=== PATIENT | female | born 1955 | race Caucasian/White ===

== ENCOUNTER 2017-01-02 11:06 | Emergency (ER) | payer BC ==
[2017-01-02 11:10] VITALS: TEMP 97.8; BMI 30.7
--- NOTE | 2017-01-02 11:18 | PDOC ---
History of Present Illness - History of Present Illness Initial Comments: 01/02/17 11:26 The patient is a 61 year old female, with a significant past medical history of GERD (on ranitidine), hydronephrosis and kidney stones s/p lithotripsy and stent placement, and [place] Palsy (with residual left facial weakness), who presents to the emergency department with dizziness and nausea since yesterday. The patient states that the room spins when she moves her head or gets up from sitting down. She denies experiencing this in the past, but reports she usually experiences intermittent ringing in her ears. She denies tinnitus at this time. She denies falling secondary to her dizziness. She reports seeing an ENT for sinus problems and reports having sinus polyps removed She denies chest pain, shortness of breath, headache. She denies fever, chills, vomit, diarrhea and constipation. She denies dysuria, frequency, urgency and hematuria. Allergies: NKDA Past surgical history: cholecystectomy, removal of sinus polyp, b/l TKR Social history: Pt denies toxic habits PCP - Dr. Matt Parmar <Yue Méndez - Last Filed: 01/02/17 11:26> - General History Source: Patient Exam Limitations: No Limitations <Tita Mason - Last Filed: 01/02/17 13:58> - General Chief Complaint: Lightheaded Stated Complaint: DIZZINESS Time Seen by Provider: 01/02/17 11:13 Past History <Yue Méndez - Last Filed: 01/02/17 11:26> - Past Medical History Anemia: No Asthma: No GI Disorders: Yes (ACID REFLUX) Disorders: Yes (KIDNEY STONES) - Surgical History Abdominal Surgery: Yes Cholecystectomy: Yes Orthopedic Surgery: Yes - Psycho/Social/Smoking Cessation Hx Anxiety: No Suicidal Ideation: No Smoking Status: No Smoking History: Never smoked Have you smoked in the past 12 months: No Number of Cigarettes Smoked Daily: 0 Hx Alcohol Use: No Drug/Substance Use Hx: No Substance Use Type: None Hx Substance Use Treatment: No <Tita Mason - Last Filed: 01/02/17 13:58> - Past Medical History Allergies/Adverse Reactions: Allergies Allergy/AdvReac Type Severity Reaction Status Date / Time No Known Drug Allergies Allergy Verified 01/02/17 11:07 Home Medications: Ambulatory Orders Meclizine HCl [Antivert -] 25 mg PO TID #21 tablet 01/02/17 Ranitidine [Zantac -] 150 mg PO BID 01/02/17 Review of Systems - Review of Systems Able to Perform ROS?: Yes Comments:: 01/02/17 11:26 CONSTITUTIONAL: Absent: fever, no chills, no fatigue EYES: Absent: visual changes ENT: Absent: ear pain, no sore throat CARDIOVASCULAR: Absent: chest pain, no palpitations RESPIRATORY: Absent: cough, no SOB GASTROINTESTINAL: (+) nausea, Absent: abdominal pain, no vomiting, no constipation, no diarrhea GENITOURINARY: Absent: dysuria, no frequency, no hematuria MUSCULOSKELETAL: Absent: back pain, no arthralgia, no myalgia SKIN: Absent: rash NEURO: (+) vertigo. Absent: headache <Yue Méndez - Last Filed: 01/02/17 11:26> *Physical Exam - Vital Signs Last Vital Signs Temp Pulse Resp BP Pulse Ox 97.8 F 65 18 161/78 99 01/02/17 11:06 01/02/17 11:06 01/02/17 11:06 01/02/17 11:06 01/02/17 11:06 - Physical Exam Comments: 01/02/17 11:27 GENERAL: The patient is in no acute distress. HEAD: Normal with no signs of trauma. EYES: (+) nystagmus on the right. PERRLA, EOMI, sclera anicteric, conjunctiva clear. ENT: Ears normal, nares patent, oropharynx clear without exudates. Moist mucous membranes. NECK: Normal range of motion, supple without lymphadenopathy, JVD, or masses. LUNGS: Breath sounds equal, clear to auscultation bilaterally. No wheezes, and no crackles. HEART:Regular rate and rhythm, normal S1 and S2 without murmur, rub or gallop. ABDOMEN: Soft, nontender, normoactive bowel sounds. No guarding, no rebound. No masses palpable. EXTREMITIES: Normal range of motion, no edema. No clubbing or cyanosis. No erythema, or tenderness. NEUROLOGICAL: Cranial nerves II through XII grossly intact. Normal speech. No focal neurological deficits. MUSCULOSKELETAL: Back non-tender to palpation, no CVA tenderness SKIN: Warm, Dry, normal turgor, no rashes or lesions noted. <Yue Méndez - Last Filed: 01/02/17 11:26> - Vital Signs Last Vital Signs Temp Pulse Resp BP Pulse Ox 97.8 F 65 18 161/78 99 01/02/17 11:06 01/02/17 11:06 01/02/17 11:06 01/02/17 11:06 01/02/17 11:06 <Tita Mason - Last Filed: 01/02/17 13:58> Heart Score/ECG Review #1 ECG reviewed & interpreted by me at: 11:58 01/02/17 11:58 Sinus bradycardia rate of 53 bpm [place] nml Intervals nml T waves nml <Tita Mason - Last Filed: 01/02/17 13:58> ED Treatment Course - LABORATORY CBC & Chemistry Diagram: 01/02/17 11:45 01/02/17 11:45 <Tita Mason - Last Filed: 01/02/17 13:58> Medical Decision Making - Medical Decision Making 01/02/17 11:17 A portion of this note was documented by scribe services under my direction. I have reviewed the details of the note, within reason, and agree with the documentation with the following case summary and management plan written by me. Nursing documentation reviewed and incorporated into medical decision making 01/02/17 11:39 This is a 61-year-old female with a history of GERD, kidney stones, prior left- sided Padilla's palsy who presents emergency department with vertigo. Patient states her symptoms began yesterday but improved. This morning again she awoke with vertiginous symptoms. Her symptoms worsen when she stands or clicks to the right. No head trauma. No fevers, no chills. No headache. No tinnitus. On exam: Pt has left facial weakness (Per is a stable) patient has 5/5 strength in all extremities (+) horizontal nystagmus to the right Symptoms elicited when looking to the right Will do basic labs Will give Meclizine Will re assess Will contact PMD 01/02/17 11:58 Laboratory Tests 01/02/17 11:45 WBC 9.3 Hgb 15.6 H D Hct 47.1 H D Plt Count 277 Neutrophils % 71.3 Lymphocytes % 19.9 01/02/17 12:39 Laboratory Tests 01/02/17 11:45 Sodium 140 Potassium 4.5 Chloride 106 Carbon Dioxide 25 BUN 24 H Creatinine 0.9 D Random Glucose 130 H D Creatine Kinase 164 CK-MB (CK-2) 2.910 Troponin I < 0.02 01/02/17 13:53 Upon reassessment Pt state she feels better She has been ambulatory with no ataxia No tinnitus 01/02/17 13:[address] Parmar He recommends that she follow up with Dr. Ames Will discharge with Meclizine and ENT follow up Clinical Impression: Vertigo <Tita Mason - Last Filed: 01/02/17 13:58> *DC/Admit/Observation/Transfer - Attestations Scribe Attestion: 01/02/17 11:27 Documentation prepared by Yue Méndez, acting as medical instructor for Tita Mason MD <Yue Méndez - Last Filed: 01/02/17 11:26> - Discharge Dispostion Admit: No <Tita Mason - Last Filed: 01/02/17 13:58> Diagnosis at time of Disposition: Vertigo - Discharge Dispostion Disposition: HOME Condition at time of disposition: Stable - Prescriptions Prescriptions: Meclizine HCl [Antivert -] 25 mg PO TID #21 tablet - Referrals Referrals: Matt Parmar MD [Primary Care Provider] - Khris Ames MD [Staff Physician] - - Patient Instructions Printed Discharge Instructions: DI for Vertigo, Benign Paroxysmal Positional Vertigo, Vertigo (Alternative Therapy), DI for Benign Paroxysmal Positional Vertigo Additional Instructions: Ms. Germain Thank you for coming in to the ER today Please take prescribed medication to help with your vertigo Please return to the ER for persistent or worsening symptoms I have discussed your ER visit with Dr Parmar He recommends that you follow up with Dr. Ames within in the next 2-3 business days
[2017-01-02] MEDS ORDERED: MECLIZINE HCL 25 MG TABLET (FP) PO ONE (11:26)
[2017-01-02] MEDS ORDERED: MECLIZINE HCL 25 MG TABLET (FP) ONE (11:44)
[2017-01-02 11:51] LABS: BASOPHIL 1.1 % (0-2.0); EOSINOPHIL 1.4 % (0-4.5); MCH 28.6 pg (25.7-33.7); MCHC 33.2 g/dl (32.0-36.0); MEAN CELL VOLUME 86.1 fl (80-96); MEAN PLT VOLUME 7.9 fl (7.5-11.1); NEUTROPHILS 71.3 % (42.8-82.8); PLATELET COUNT 277 K/MM3 (134-434); RDW 14.8 % (11.6-15.6); WHITE BLOOD COUNT 9.3 K/mm3 (4.0-10.0)
[2017-01-02 12:18] LABS: ALBUMIN 3.6 g/dl (3.4-5.0); ANION GAP 9 (8-16); BILIRUBIN,TOTAL 0.3 mg/dL (0.2-1.0); CALCIUM 9.3 mg/dL (8.5-10.1); CO2 25 mmol/L (21-32); CREATININE 0.9 mg/dL (0.55-1.02); GLUCOSE,RANDOM 130 mg/dL (74-106); SGOT/AST 20 U/L (15-37); SGPT/ALT 24 U/L (12-78); TOT PROT 7.2 g/dl (6.4-8.2)
[2017-01-02 12:20] LABS: ALK PHOS 61 U/L (45-117); TROPONIN I < 0.02 ng/ml (0.00-0.05)
--- NOTE | 2017-01-02 13:05 | EKG ---
Test Reason : Blood Pressure : / mmHG Vent. Rate : 053 BPM Atrial Rate : 053 BPM P-R Int : 158 ms QRS Dur : 094 ms QT Int : 428 ms P-R-T Axes : 051 004 021 degrees QTc Int : 401 ms SINUS BRADYCARDIA OTHERWISE NORMAL ECG WHEN COMPARED WITH ECG OF 20-JUL-2015 10:02, NO SIGNIFICANT CHANGE WAS FOUND Confirmed by MARY BETH GARCIA MD ([id number]) on 01/02/2017 1:05:28 PM Referred By: Confirmed By:MARY BETH GARCIA MD
[2017-01-02 14:15] VITALS: BP 130/80; PULSE 68
== END 2017-01-02 14:15 | disposition home or self-care (01) ==
LOC: JER 11:06 → SUPCPDRO 11:06 → JER 14:15
DX: R42 Dizziness and giddiness (principal); K21.9 Gastro-esophageal reflux disease without esophagitis; G51.0 Bell's palsy; R29.810 Facial weakness; Z87.442 Personal history of urinary calculi
CPT/HCPCS: 36415; 80053; 82550; 82553; 84484; 85025; 93005; 93010; 99283-25

== ENCOUNTER 2019-04-05 07:01 | Day surgery (SDC) | payer BC ==
[2019-04-02 09:44] VITALS: BMI 31.7
[2019-04-05 08:25] VITALS: TEMP 98
[2019-04-05 09:16] VITALS: BP 147/80; PULSE 65
--- NOTE | 2019-04-05 12:47 | EKG ---
Test Reason : Blood Pressure : / mmHG Vent. Rate : 064 BPM Atrial Rate : 064 BPM P-R Int : 156 ms QRS Dur : 096 ms QT Int : 414 ms P-R-T Axes : -03 036 023 degrees QTc Int : 427 ms NORMAL SINUS RHYTHM NORMAL ECG WHEN COMPARED WITH ECG OF 02-JAN-2017 11:55, NO SIGNIFICANT CHANGE WAS FOUND Confirmed by ZARA PAYAN MD ([id number]) on 04/05/2019 12:47:51 PM Referred By: Janna Liao Confirmed By:ZARA PAYAN MD
--- NOTE | 2019-04-06 18:12 | PATH ---
Surgical Pathology Report Patient Name: KIEL MICHAEL [facility]. Rec. #: [id number] /Age/Gender: 1955 (Age: 63) / F Account: [id number] Location: U-ENDOSCOPY Taken: 04/05/2019 Received: 04/05/2019 Reported: 04/06/2019 Physicians: Janna Liao M.D. Specimen(s) Received A: ANTRUM B: GE JUNCTION/SCHATZKI RING BIOPSY C: MID ESOPHAGUS Clinical History Dysphagia, epigastric pain Postoperative diagnosis: Erosive gastritis, GERD Final Diagnosis A. ANTRUM, BIOPSY: GASTRIC MUCOSA WITH CHRONIC GASTRITIS. IMMUNOSTAIN FOR H. PYLORI IS NEGATIVE. NEGATIVE FOR INTESTINAL METAPLASIA. B. GE JUNCTION/SCHATZKI'S RING, BIOPSY: GASTROESOPHAGEAL JUNCTIONAL MUCOSA WITH REFLUX ESOPHAGITIS. NEGATIVE FOR INTESTINAL METAPLASIA. C. MID ESOPHAGUS, BIOPSY: ESOPHAGEAL MUCOSAL WITH NO SIGNIFICANT PATHOLOGIC CHANGE. NO HISTOLOGIC EVIDENCE OF EOSINOPHILIC ESOPHAGITIS. Electronically Signed Almaz Petersen M.D. Gross Description A. Received in formalin, labeled "antrum" are 4 fuentes, irregular soft tissue measuring 0.1 to 0.4 cm. in greatest dimension. The specimen is submitted in toto in one cassette. B. Received in formalin, labeled "GE junction/Schatzki's ring" are 4 fuentes soft tissue measuring 0.2 to 0.3 cm. in greatest dimension. The specimen is submitted in toto in one cassette. C. Received in formalin, labeled "mid esophagus" is a fuentes, irregular soft tissue measuring 0.1 cm. in greatest dimension. The specimen is submitted in toto in one cassette. __ KWS/04/05/2019 deirdre/04/05/2019
--- NOTE | 2019-04-17 10:07 | PDOC ---
Patient Follow-up (Call Back) - Post ED Follow - Up Condition at time of discharge: Stable Disposition at time of original discharge: TRANSFER ACUTE CARE/OTHER HOSP - Disposition Additional Instructions/Notes: Patient called back re: positive urine culture Patient mentions having occasional dysuria Given symptomatic, rx sent for Bactrim based on culture sensitivities
== END 2019-04-05 09:17 | disposition short-term general hospital (02) ==
LOC: JASU-ENDO 07:01
PROVIDERS: ATTEND Internal Medicine Gastroenterology
PROC: 0DB28ZX Excision of Middle Esophagus, Via Natural or Artificial Opening Endoscopic, Diagnostic (ICD-10-PCS; 2019-04-05)
PROC: 0DB38ZX Excision of Lower Esophagus, Via Natural or Artificial Opening Endoscopic, Diagnostic (ICD-10-PCS; 2019-04-05)
PROC: 0DB48ZX Excision of Esophagogastric Junction, Via Natural or Artificial Opening Endoscopic, Diagnostic (ICD-10-PCS; 2019-04-05)
PROC: 0DB68ZX Excision of Stomach, Via Natural or Artificial Opening Endoscopic, Diagnostic (ICD-10-PCS; principal; 2019-04-05 08:00)
DX: K29.50 Unspecified chronic gastritis without bleeding (principal); K21.0 Gastro-esophageal reflux disease with esophagitis; K44.9 Diaphragmatic hernia without obstruction or gangrene; K21.9 Gastro-esophageal reflux disease without esophagitis; R10.13 Epigastric pain; R13.10 Dysphagia, unspecified; R07.9 Chest pain, unspecified
CPT/HCPCS: 36415; 74019-TC-FY; 80053; 81003; 82550; 84484; 85025; 85610; 85730; 86850; 86900; 86901; 87086; 87186; 88305-TC; 88342-TC; 93005; 93010; 99285-25; J0131; J7030

== ENCOUNTER 2019-04-05 09:13 | Emergency (ER) | payer BC ==
[2019-04-05 09:32] VITALS: BMI 30.4
[2019-04-05] MEDS ORDERED: ACETAMINOPHEN 1000 MG/100 ML VIAL (NON FORMULARY) IVPB ONE (09:48)
[2019-04-05] MEDS ORDERED: FAMOTIDINE 20 MG/50 ML IVPB 20 MG/50 ML MG IVPB ONE ×2 (09:48→10:02)
[2019-04-05] MEDS ORDERED: SODIUM CHLORIDE 1,000 ML IV STA (09:48)
[2019-04-05] MEDS ORDERED: ACETAMINOPHEN INJECTION 100 ML IVPB ONE (10:02)
--- NOTE | 2019-04-05 10:04 | PDOC ---
History of Present Illness - General Chief Complaint: Chest Pain Stated Complaint: Chest Pain Time Seen by Provider: 04/05/19 09:24 History Source: Patient Exam Limitations: No Limitations Past History - Past Medical History Allergies/Adverse Reactions: Allergies Allergy/AdvReac Type Severity Reaction Status Date / Time No Known Drug Allergies Allergy Verified 01/02/17 11:07 Home Medications: Ambulatory Orders Pantoprazole Sodium [Protonix] 40 mg PO DAILY 04/02/19 Fluticasone Prop 0.05% Nasal [Flonase -] 1 spray NS PRN PRN 04/05/19 Mag Carb/Aluminum Hydrox/Algin [Gaviscon Liquid] 15 - 30 ml PO Q6H PRN 04/05/19 Anemia: No Asthma: No COPD: No GI Disorders: Yes (ACID REFLUX GERD SCHATZKI RING HH DIVERTICULOSIS, R COLON ADENOMA) Disorders: Yes (KIDNEY STONES, S/P ESWL) - Surgical History Abdominal Surgery: Yes Cholecystectomy: Yes (LAP) Neurologic Surgery: Yes (CERVICAL SPINE SURGERY) Orthopedic Surgery: Yes (DEBRA TOTAL KNEE REPLACEMENTS) - Immunization History Immunization Up to Date: No - Psycho Social/Smoking Cessation Hx Smoking Status: No Smoking History: Never smoked Have you smoked in the past 12 months: No Number of Cigarettes Smoked Daily: 0 Hx Alcohol Use: No Drug/Substance Use Hx: No Substance Use Type: None Hx Substance Use Treatment: No Review of Systems - Review of Systems Able to Perform ROS?: Yes Is the patient limited Niuean proficient: No *Physical Exam - Vital Signs Last Vital Signs Temp Pulse Resp BP Pulse Ox 99.0 F 62 16 166/81 99 04/05/19 09:27 04/05/19 09:27 04/05/19 09:27 04/05/19 09:27 04/05/19 09:27 ED Treatment Course - LABORATORY CBC & Chemistry Diagram: 04/05/19 10:05 04/05/19 10:05 Medical Decision Making - Medical Decision Making 04/05/19 09:58 HPI: 63F PMH GERD c/o chest pain and heaviness s/p endoscopy this AM. Sx started after pt woke up from general anesthesia. Described as constant nonradiating substernal chest pain and heaviness "as if elephant were sitting on her." Pt states sx unlike her GERD pain. Pain has decreased to 4/10 since onset. Denies sob, abdominal pain. PMH: GERD, arthritis Endoscopy by Dr. Keshawn MIDDLETON ROS: CONSTITUTIONAL: Denies F / C / Diaphoresis HEENT: Endorses mild lightheadedness RESP: Denies SOB CARD: Endorses chest pain, chest heaviness. Denies palpitation. GI: Denies N / V / D, abdominal pain : Endorses 1 week dysuria PE: GEN: NAD, comfortable. AAOx3 HEENT: NC/AT. Moist mucous membranes. Normal voice. Supple neck w/ FROM. CV: S1/S2, RRR, no m/r/g LUNG: CTAB, no wheezes, crackles, rales, rhonchi. Normal respiratory effort on RA. GI: Endorsing mild epigastric soreness on palpation but otherwise soft, ndnt, + BS, no guarding, no rebound. No masses. EXTREMITIES: No obvious deformities of all extremities. SKIN: warm, dry, normal turgor PSYCH: normal mood and affect NEURO: Moving all extremities well. MDM: 63F c/o chest pain/heaviness s/p endoscopy. DDX- ACS, Esophageal perforation, Esophageal irritation Chest Pain/Heaviness - CBC, CMP, T&S, Coag, Card - XR ABD Flat and upright - EKG - fluids, pain ctrl, famotidine Dysuria x1 week on ROS - UA, UC EKG 04/05/19 09:48 HR 65 [place] 156 QRS 88 QTc 428 NSR 04/05/19 12:37 UA neg. XR report reviewed Trop neg. x1 - Obtain repeat EKG and trop Patient is not interested in staying overnight ED team spoke w/ Dr. Parmar regarding case and patient wishes - cardiology c /s 04/05/19 15:09 2nd trop neg. EKG 04/05/19 12:25 HR 59 [place] 168 QRS 94 QTc 411 Patient reassessed and feeling better; symptoms are improving Discussed w/ Cardiology - Dr. Cotter who will see the patient today 04/05/19 16:34 Discussed patient w/ Cardiology - Dr. Cotter; will evaluate patient outpatient - echo, stress Discharge patient home w/ close cardiology and pcp f/u Discharge - Discharge Information Problems reviewed: Yes Clinical Impression/Diagnosis: Chest heaviness Condition: Improved Disposition: HOME - Admission No - Follow up/Referral Referrals: Matt Parmar MD [Primary Care Provider] - Cathryn Cotter MD [Staff Physician] - - Patient Discharge Instructions Patient Printed Discharge Instructions: DI for Atypical Chest Pain Additional Instructions: You were seen and treated in the Emergency Department. Follow up with your Primary Care Doctor regarding this ED visit in the next 2-4 days. Follow up with Cardiology Dr. Cotter for further evaluation of your symptoms within the next 1 day. Return to the Emergency Department IMMEDIATELY if you experience any of the following: - chest pain - shortness of breath or difficulty breathing - severe vomiting or inability to eat or drink - ANYTHING that concerns you - Post Discharge Activity
[2019-04-05 10:35] LABS: BASO % 1.5 % (0-2.0); EOS % 2.8 % (0-4.5); HEMATOCRIT 44.6 % (32.4-45.2); HEMOGLOBIN 14.5 GM/dL (10.7-15.3); LYMPH % 28.9 % (8-40); MCH 28.3 pg (25.7-33.7); MCHC 32.5 g/dl (32.0-36.0); MEAN PLT VOLUME 8.2 fl (7.5-11.1); MONO % 7.2 % (3.8-10.2); NEUT % 59.6 % (42.8-82.8); PLATELET COUNT 326 K/MM3 (134-434); RBC 5.12 M/mm3 (3.60-5.2); RDW 14.9 % (11.6-15.6); WHITE BLOOD COUNT 9.9 K/mm3 (4.0-10.0)
[2019-04-05 10:45] LABS: INR 0.96 (0.83-1.09); PROTHROMBIN TIME (PATIENT) 11.3 SEC (9.7-13.0)
[2019-04-05 10:46] LABS: EPI CELLS 0.3 /HPF (0-5/HPF); HYALINE CASTS 0 /lpf (0-8); PH,URINE 6.5 (5.0-8.0); URINE APPEARANCE CLEAR; URINE BACTERIA 2.4 /hpf (NEGATIVE); URINE BILIRUBIN NEGATIVE (NEGATIVE); URINE COLOR YELLOW; URINE GLUCOSE (UA) NEGATIVE (NEGATIVE); URINE KETONE NEGATIVE (NEGATIVE); URINE LEUK ESTERASE TRACE (NEGATIVE); URINE NITRITE NEGATIVE (NEGATIVE); URINE PROTEIN NEGATIVE (NEGATIVE); URINE RBC 0 /hpf (0-4); URINE UROBILINOGEN 0.2 mg/dL (0.2-1.0); URINE WBC 6 /hpf (0-5)
[2019-04-05 10:47] LABS: ACTIVATED PTT 34.3 SECONDS (25.2-36.5)
[2019-04-05 11:00] LABS: ALBUMIN 3.6 g/dl (3.4-5.0); ALK PHOS 59 U/L (45-117); ANION GAP 5 MMOL/L (8-16); BILIRUBIN,TOTAL 0.4 mg/dL (0.2-1); BLOOD UREA NITROGEN 23.4 mg/dL (7-18); CHLORIDE 109 mmol/L (98-107); CO2 30 mmol/L (21-32); CREATININE 1.1 mg/dL (0.55-1.3); GLUCOSE,RANDOM 108 mg/dL (74-106); POTASSIUM 4.2 mmol/L (3.5-5.1); SGOT/AST 16 U/L (15-37); SGPT/ALT 23 U/L (13-61); SODIUM 143 mmol/L (136-145); TOT PROT 7.1 g/dl (6.4-8.2)
[2019-04-05] MEDS ORDERED: ASPIRIN 81 MG CHEWABLE TABLETS PO ONE (12:09)
--- NOTE | 2019-04-05 12:15 | PDOC ---
Documentation entered by Chelle Kaiser SCRIBE, acting as scribe for Jojo Harris MD. Jojo Harris MD: This documentation has been prepared by the Awilda bates Brenda, SCRIBE, under my direction and personally reviewed by me in its entirety. I confirm that the documentation accurately reflects all work, treatment, procedures, and medical decision making performed by me. Attending Attestation - Resident Resident Name: Juan Luis Ramirez - ED Attending Attestation I have performed the following: I have examined & evaluated the patient, The case was reviewed & discussed with the resident, I agree w/resident's findings & plan, Exceptions are as noted - HPI HPI: 04/05/19 10:13 The patient is a 63 year old female, with a significant PMH of GERD, arthritis and right colon adenoma, who presents to the emergency department with chest pain which she describes as heaviness immediately after having an endoscopy done this morning. Patient states that the pain has decreased to a 4/10 in severity since it started. She also states that this is unlike her GERD. Patient denies history of DVT or PE. Patient reports that father had diabetes and MA in 40's. and at age 49. Patient notes that last stress test was over 5 years ago. Denies fever, chills, nausea, vomiting, diarrhea and constipation. Denies abdominal pain, diarrhea or constipation. Denies any urintyu symtpioms. Allergies: NKA Past surgical history: Cervical spine surgery, bilateral total knee replacements Social history: No tobacco use, alcohol use or illicit drug use. PCP: [facility] Endoscopy done by Keshawn. - Physicial Exam PE: 04/05/19 12:12 : Exam awake alert no acute distress lungs are clear bilaterally heart is regular with any murmurs rubs or gallops abdomen is soft and nontender extremities are warm and well-perfused there is noted to have varicose veins in the extremities however no calf tenderness no edema noted patient has 2+ DP PT pulses are symmetric neurologically she is awake alert oriented x3 - Medical Decision Making 04/05/19 12:13 63-year-old female history of post endoscopy chest pain described as a pressure- like sensation. Does have a family history of heart disease otherwise no risk factors for hypertension plan CBC CMP EKG troponin aspirin was held initially pending the chest x-ray abdominal x-ray to rule out any possible mediastinal air or traumatic perforation from endoscopy. Chest x-rays reviewed and negative abdominal x-rays are negative labs are reviewed troponin initially is negative CBC CMP are unremarkable. There is no signs of anemia. Plan repeat troponin at 4 hours patient was advised for observation overnight to rule out ACS due to her risk factors of a family history of CAD and concerning description of her pain. Will discuss with the patient's PCP Dr. Parmar she is unwilling to stay we will give aspirin at this point 04/05/19 16:45 Okay patient's troponins were negative x2 was evaluated by Dr. Hodgson rivet catcher per the request of Dr. Parmar. This point is cleared to go home by Dr. Vahe Parmar is on board patient will receive close follow- up and outpatient stress testing likely told to return for any recurrent symptoms or concerns Heart Score/ECG Review #1 ECG reviewed & interpreted by me at: 16:45 General ECG Interpretation: Sinus Rhythm, Normal Rate, Normal Intervals, No acute ischemic changes
[2019-04-05] MEDS ORDERED: ASPIRIN 81 MG CHEWABLE TABLETS ONE (12:27)
--- NOTE | 2019-04-05 12:44 | EKG ---
Test Reason : Blood Pressure : / mmHG Vent. Rate : 065 BPM Atrial Rate : 065 BPM P-R Int : 156 ms QRS Dur : 088 ms QT Int : 412 ms P-R-T Axes : 059 022 037 degrees QTc Int : 428 ms NORMAL SINUS RHYTHM NORMAL ECG WHEN COMPARED WITH ECG OF 05-APR-2019 08:31, NO SIGNIFICANT CHANGE WAS FOUND Confirmed by ZARA PAYAN MD ([id number]) on 04/05/2019 12:44:08 PM Referred By: Confirmed By:ZARA PAYAN MD
[2019-04-05 15:50] VITALS: PULSE 64; TEMP 97.8
--- NOTE | 2019-04-05 16:40 | CON.CARD ---
Consult Consult Specialty:: Cardiology Referred by:: ER Reason for Consultation:: chest pain - History of Present Illness Chief Complaint: chest pain History of Present Illness: 63F h/o GERD p/w chest discomfort after endoscopy this morning. Prior to procedure no chest pain, palps, dizziness, dyspnea. 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 No prior cardiac history. Today she felt constant, nonradiating pain lasting several hours after the EGD, has been improving. No palps, dizziness, dyspnea. Trop neg x 2 and EKG unremarkable in ER. - Past Medical History Gastrointestinal: Yes: GERD - Past Surgical History Past Surgical History: Yes: Cholecystectomy, Joint Replacement - Alcohol/Substance Use Hx Alcohol Use: No History of Substance Use: reports: None - Smoking History Smoking history: Never smoked Have you smoked in the past 12 months: No Aproximately how many cigarettes per day: 0 - Social History ADL: Independent History of Recent Travel: Yes (returning from [place]) Home Medications - Allergies Allergies/Adverse Reactions: Allergies Allergy/AdvReac Type Severity Reaction Status Date / Time No Known Drug Allergies Allergy Verified 01/02/17 11:07 - Home Medications Home Medications: Ambulatory Orders Pantoprazole Sodium [Protonix] 40 mg PO DAILY 04/02/19 Fluticasone Prop 0.05% Nasal [Flonase -] 1 spray NS PRN PRN 04/05/19 Mag Carb/Aluminum Hydrox/Algin [Gaviscon Liquid] 15 - 30 ml PO Q6H PRN 04/05/19 Family Medical History Family History: Unremarkable Review of Systems - Review of Systems Constitutional: reports: No Symptoms Eyes: reports: No Symptoms HENT: reports: No Symptoms Neck: reports: No Symptoms Cardiovascular: reports: No Symptoms Respiratory: reports: No Symptoms Gastrointestinal: reports: No Symptoms Genitourinary: reports: No Symptoms Musculoskeletal: reports: No Symptoms Integumentary: reports: No Symptoms Neurological: reports: No Symptoms Endocrine: reports: No Symptoms Hematology/Lymphatic: reports: No Symptoms Psychiatric: reports: No Symptoms Vital Signs: Vital Signs Temperature 97.8 F 04/05/19 15:48 Pulse Rate 64 04/05/19 15:48 Respiratory Rate 16 04/05/19 15:48 Blood Pressure 160/81 04/05/19 15:48 O2 Sat by Pulse Oximetry (%) 99 04/05/19 15:48 Constitutional: Yes: No Distress, Calm Eyes: Yes: Conjunctiva Clear, EOM Intact HENT: Yes: Atraumatic, Normocephalic Neck: Yes: Supple, Trachea Midline Respiratory: Yes: Regular, CTA Bilaterally Gastrointestinal: Yes: Normal Bowel Sounds, Soft Cardiovascular: Yes: Regular Rate and Rhythm JVD: No Integumentary: No: Jaundice Neurological: Yes: Alert, Oriented Psychiatric: No: Agitated - Other Data Labs, Other Data: CBC, BMP 04/05/19 10:05 04/05/19 10:05 INR, PTT INR 0.96 (0.83-1.09) 04/05/19 10:05 Troponin, BNP 04/05/19 04/05/19 10:05 12:30 Troponin I < 0.02 < 0.02 Troponin, BNP 04/05/19 04/05/19 10:05 12:30 Troponin I < 0.02 < 0.02 Assessment/Plan EKG: sinus, nl intervals, no ischemic changes tele: sinus Chest pain - unremarkable abd xray - trop neg x 2, EKG no ischemic changes, unlikely ACS, no events on tele - may be in setting of GERD vs MSK, symptoms improving - will arrange outpatient echo and stress echo, stable for dc from cardiac perspective GERD - manage per primary
--- NOTE | 2019-04-05 16:49 | EKG ---
Test Reason : Blood Pressure : / mmHG Vent. Rate : 059 BPM Atrial Rate : 059 BPM P-R Int : 168 ms QRS Dur : 094 ms QT Int : 416 ms P-R-T Axes : 054 015 031 degrees QTc Int : 411 ms SINUS BRADYCARDIA OTHERWISE NORMAL ECG WHEN COMPARED WITH ECG OF 05-APR-2019 09:48, NO SIGNIFICANT CHANGE WAS FOUND Confirmed by JEANNETTE SERNA MD ([id number]) on 04/05/2019 4:49:01 PM Referred By: Confirmed By:JEANNETTE SERNA MD
[2019-04-05 17:12] VITALS: BP 165/75
== END 2019-04-05 17:21 | disposition home or self-care (01) ==
LOC: JER 09:13
PROC: 3E0337Z Introduction of Electrolytic and Water Balance Substance into Peripheral Vein, Percutaneous Approach (ICD-10-PCS; principal; 2019-04-05)
PROC: 3E033NZ Introduction of Analgesics, Hypnotics, Sedatives into Peripheral Vein, Percutaneous Approach (ICD-10-PCS; 2019-04-05)
PROC: 3E033GC Introduction of Other Therapeutic Substance into Peripheral Vein, Percutaneous Approach (ICD-10-PCS; 2019-04-05)
DX: R07.9 Chest pain, unspecified (principal); K21.9 Gastro-esophageal reflux disease without esophagitis; Z98.890 Other specified postprocedural states; Z96.653 Presence of artificial knee joint, bilateral
CPT/HCPCS: 36415; 74019-TC-FY; 80053; 81003; 82550; 84484; 85025; 85610; 85730; 86850; 86900; 86901; 87086; 87186; 93005; 93010; 99285-25; J0131; J7030

== ENCOUNTER 2022-01-30 04:09 | Day surgery (SDC) | payer BC ==
[2022-01-23 12:33] VITALS: BMI 29.4
[2022-01-30] MEDS ORDERED: LIDOCAINE 1%/EPI 1:100000 (20 ML MULTI DOSE VIAL) ONE (07:10)
[2022-01-30] MEDS ORDERED: LIDOCAINE HCL 1%, 10 MG/ML (20ML VIAL) ONE (07:10)
[2022-01-30] MEDS ORDERED: LIDOCAINE HCL/PF 2% SDV 5ML VIAL ONE (07:55)
[2022-01-30] MEDS ORDERED: MIDAZOLAM HCL 2 MG/2 ML SINGLE DOSE VIAL ONE (07:56)
[2022-01-30] MEDS ORDERED: PROPOFOL 20 ML ONE (07:56)
[2022-01-30] MEDS ORDERED: DEXAMETHASONE SOD PHOSPHATE 4 MG/1 ML VIAL ONE (08:27)
[2022-01-30] MEDS ORDERED: ONDANSETRON 4 MG/2 ML VIAL ONE ×2 (08:27→11:36)
[2022-01-30] MEDS ORDERED: IBUPROFEN 800 MG/8 ML IJ IVPB PRN (09:23)
[2022-01-30] MEDS ORDERED: ONDANSETRON 4 MG/2 ML VIAL IVPUSH PRN (09:23)
[2022-01-30] MEDS ORDERED: oxyCODONE HCL 5 MG TABLET PO PRN (09:23)
[2022-01-30] MEDS ORDERED: ACETAMINOPHEN 1000 MG/100 ML BAG IVPB PRN (09:23)
[2022-01-30] MEDS ORDERED: LACTATED RINGERS SOLUTION 1,000 ML IV SCH (09:30)
[2022-01-30] MEDS ORDERED: ONDANSETRON 4 MG/2 ML VIAL IVPB ONE (11:40)
[2022-01-30 11:48] VITALS: RESP 18
[2022-01-30] MEDS ORDERED: oxyCODONE HCL 5 MG TABLET ONE (12:46)
[2022-01-30] MEDS ORDERED: oxyCODONE HCL 5 MG TABLET PO ONE (12:48)
[2022-01-30 14:46] VITALS: BP 140/5; PULSE 70; TEMP 97.6
== END 2022-01-30 14:15 | disposition home or self-care (01) ==
LOC: JASU-SURG 04:09
PROVIDERS: ATTEND Otolaryngology
PROC: 0JB50ZZ Excision of Left Neck Subcutaneous Tissue and Fascia, Open Approach (ICD-10-PCS; principal; 2022-01-30 08:23)
DX: D17.0 Benign lipomatous neoplasm of skin and subcutaneous tissue of head, face and neck (principal)
CPT/HCPCS: 88304-TC; 94760

== ENCOUNTER 2022-04-24 04:34 | Day surgery (SDC) | payer BC, OTHER ==
[2022-04-23 08:43] VITALS: BMI 27.6
[2022-04-24] MEDS ORDERED: PROPOFOL 40 ML ONE (11:52)
[2022-04-24] MEDS ORDERED: ACETAMINOPHEN 1000 MG/100 ML BAG IVPB ONE (11:56)
[2022-04-24] MEDS ORDERED: MIDAZOLAM HCL 2 MG/2 ML SINGLE DOSE VIAL ONE (11:59)
[2022-04-24] MEDS ORDERED: IBUPROFEN 800 MG/8 ML IJ IVPB SCH (12:00)
[2022-04-24] MEDS ORDERED: DEXTROSE 5%-0.45% SALINE 1,000 ML IV SCH (12:00)
[2022-04-24] MEDS ORDERED: SUCCINYLCHOLINE CHLORIDE 200 MG/10 ML SYRINGE ONE (12:00)
[2022-04-24] MEDS ORDERED: ceFAZolin SODIUM 1 GM VIAL IVPB ONE (12:35)
[2022-04-24] MEDS ORDERED: ONDANSETRON 4 MG/2 ML VIAL ONE (12:38)
[2022-04-24] MEDS ORDERED: ONDANSETRON 4 MG/2 ML VIAL IVPUSH PRN (13:16)
[2022-04-24] MEDS ORDERED: LACTATED RINGERS SOLUTION 1,000 ML IV SCH (13:30)
[2022-04-24] MEDS ORDERED: oxyCODONE HCL 5 MG TABLET PO PRN (14:23)
[2022-04-24] MEDS ORDERED: oxyCODONE HCL 5 MG TABLET ONE ×2 (16:07→16:13)
[2022-04-24 16:27] VITALS: RESP 18
[2022-04-24 17:25] VITALS: BP 137/72; PULSE 76; TEMP 97.4
== END 2022-04-24 17:40 | disposition home or self-care (01) ==
LOC: JASU-SURG 04:34
PROVIDERS: ATTEND Urology
PROC: 0TC48ZZ Extirpation of Matter from Left Kidney Pelvis, Via Natural or Artificial Opening Endoscopic (ICD-10-PCS; principal; 2022-04-24 12:00)
PROC: 0TC38ZZ Extirpation of Matter from Right Kidney Pelvis, Via Natural or Artificial Opening Endoscopic (ICD-10-PCS; 2022-04-24 12:00)
PROC: 0T788DZ Dilation of Bilateral Ureters with Intraluminal Device, Via Natural or Artificial Opening Endoscopic (ICD-10-PCS; 2022-04-24 12:00)
DX: N20.0 Calculus of kidney (principal)
CPT/HCPCS: 76000-TC-FY; 94760; C2617

== ENCOUNTER 2023-03-10 05:16 | Day surgery (SDC) | payer OTHER, BC ==
[2023-03-07 15:22] VITALS: BMI 32.7
[2023-03-10 12:16] VITALS: TEMP 98
[2023-03-10 12:37] VITALS: BP 131/65; RESP 16
[2023-03-10 12:53] VITALS: PULSE 78
== END 2023-03-10 13:04 | disposition home or self-care (01) ==
LOC: JASU-ENDO 05:16
PROVIDERS: ATTEND Internal Medicine Gastroenterology
PROC: 0DBN8ZX Excision of Sigmoid Colon, Via Natural or Artificial Opening Endoscopic, Diagnostic (ICD-10-PCS; 2023-03-10)
PROC: 0DBL8ZX Excision of Transverse Colon, Via Natural or Artificial Opening Endoscopic, Diagnostic (ICD-10-PCS; principal; 2023-03-10 12:00)
DX: Z12.11 Encounter for screening for malignant neoplasm of colon (principal); D12.3 Benign neoplasm of transverse colon; K57.30 Diverticulosis of large intestine without perforation or abscess without bleeding; Z86.010 Personal history of colon polyps; R10.31 Right lower quadrant pain
CPT/HCPCS: 88305-TC

== ENCOUNTER 2023-09-05 04:37 | Day surgery (SDC) | payer OTHER, BC ==
[2023-08-29 17:01] VITALS: BMI 29.6
[2023-09-05] MEDS ORDERED: PROPOFOL 20 ML ONE ×2 (13:38→14:36)
[2023-09-05] MEDS ORDERED: LIDOCAINE HCL/PF 2% SDV 5ML VIAL ONE (13:38)
[2023-09-05] MEDS ORDERED: MIDAZOLAM HCL 2 MG/2 ML SINGLE DOSE VIAL ONE (13:38)
[2023-09-05] MEDS ORDERED: ACETAMINOPHEN 1000 MG/100 ML BAG IVPB ONE (14:14)
[2023-09-05] MEDS ORDERED: DEXTROSE 5%-0.45% SALINE 1,000 ML IV SCH (14:15)
[2023-09-05] MEDS ORDERED: PROMETHAZINE HCL 25 MG/1 ML VIAL IVPB PRN (14:36)
[2023-09-05] MEDS ORDERED: ONDANSETRON 4 MG/2 ML VIAL IVPUSH PRN (14:36)
[2023-09-05] MEDS: ceFAZolin SODIUM 1 GM VIAL IVPB ONE (14:40)
[2023-09-05] MEDS ORDERED: DEXAMETHASONE SOD PHOSPHATE 4 MG/1 ML VIAL ONE (14:41)
[2023-09-05] MEDS ORDERED: ceFAZolin SODIUM 1 GM VIAL ONE (14:41)
[2023-09-05] MEDS ORDERED: KETOROLAC TROMETHAMINE 30 MG/1 ML VIAL ONE (14:47)
[2023-09-05] MEDS ORDERED: ACETAMINOPHEN INJECTION 100 ML IVPB ONE (15:25)
[2023-09-05] MEDS: ACETAMINOPHEN 1000 MG/100 ML BAG IVPB ONE (15:30)
[2023-09-05] MEDS: LACTATED RINGERS SOLUTION 1,000 ML IV SCH (16:02)
[2023-09-05 16:58] VITALS: BP 148/66; PULSE 61; RESP 18; TEMP 97.5
[2023-09-05] MEDS ORDERED: oxyCODONE HCL 5 MG TABLET ONE (17:44)
[2023-09-05] MEDS ORDERED: oxyCODONE HCL 5 MG TABLET PO PRN (17:54)
== END 2023-09-05 18:20 | disposition home or self-care (01) ==
LOC: JASU-SURG 04:37
PROVIDERS: ATTEND Urology
PROC: 0TC68ZZ Extirpation of Matter from Right Ureter, Via Natural or Artificial Opening Endoscopic (ICD-10-PCS; principal; 2023-09-05 14:00)
PROC: 0T768DZ Dilation of Right Ureter with Intraluminal Device, Via Natural or Artificial Opening Endoscopic (ICD-10-PCS; 2023-09-05 14:00)
DX: N13.2 Hydronephrosis with renal and ureteral calculous obstruction (principal)
CPT/HCPCS: 76000-TC-FY; 94760; C1758; C2617; J0131

== ENCOUNTER 2023-12-30 04:09 | Day surgery (SDC) | payer OTHER, BC ==
[2023-12-19 15:29] VITALS: BMI 29.7
[2023-12-30] MEDS ORDERED: ONDANSETRON 4 MG/2 ML VIAL ONE (07:18)
[2023-12-30] MEDS ORDERED: MIDAZOLAM HCL 2 MG/2 ML SINGLE DOSE VIAL ONE ×3 (07:18→08:05)
[2023-12-30] MEDS ORDERED: DEXTROSE 5%-0.45% SALINE 1,000 ML IV SCH (07:45)
[2023-12-30] MEDS ORDERED: ceFAZolin SODIUM 1 GM VIAL ONE (07:55)
[2023-12-30] MEDS: ceFAZolin SODIUM 1 GM VIAL IVPB ONE (07:57)
[2023-12-30] MEDS ORDERED: KETOROLAC TROMETHAMINE 30 MG/1 ML VIAL ONE (08:15)
[2023-12-30 08:39] VITALS: RESP 20
[2023-12-30 11:05] VITALS: BP 142/59; PULSE 63; TEMP 97.2
== END 2023-12-30 11:00 | disposition home or self-care (01) ==
LOC: JASU-SURG 04:09
PROVIDERS: ATTEND Urology
PROC: 0TC48ZZ Extirpation of Matter from Left Kidney Pelvis, Via Natural or Artificial Opening Endoscopic (ICD-10-PCS; principal; 2023-12-30 07:30)
DX: N20.0 Calculus of kidney (principal)

== ENCOUNTER 2024-05-19 07:07 | Day surgery (SDC) | payer OTHER, BC ==
[2024-05-13 16:12] VITALS: BMI 29.7
[2024-05-19] MEDS ORDERED: EPINEPHrine/PF 1 MG/1 ML (1:1,000) AMPULE ONE ×2 (07:20)
[2024-05-19] MEDS ORDERED: TETRACAINE 0.5% OPHTH SOLN 2 ML BOTTLE ONE (07:20)
[2024-05-19] MEDS ORDERED: NEO/POLYMYX B SULF/DEXAMETH OPHTHALMIC 5ML BOTTLE ONE (07:20)
[2024-05-19] MEDS ORDERED: LIDOCAINE 1% P/F 10 MG/ML VIAL ONE (07:20)
[2024-05-19] MEDS ORDERED: CARBACHOL 0.01% INTRA-OCULAR 1.5 ML VIAL ONE (07:20)
[2024-05-19] MEDS ORDERED: BSS (NA/CA/MG/K) BALANCED SALT SOLUTION OPHTH SOLN 15 ML BOTTLE ONE (07:20)
[2024-05-19] MEDS: CIPROFLOXACIN 0.3% EYE DROPS 5 ML BOTTLE ONE (07:25)
[2024-05-19] MEDS: TROPICAMIDE 1% 3 ML EYE DROPS ONE (07:25)
[2024-05-19] MEDS: CYCLOPENTOLATE 2% OPHTH SOLN 2 ML BOTTLE ONE (07:25)
[2024-05-19] MEDS: PHENYLEPHRINE 2.5% OPTHALMIC DROP 2ML BOTTLE ONE (07:25)
[2024-05-19 07:39] VITALS: TEMP 97.7
[2024-05-19] MEDS ORDERED: MIDAZOLAM HCL 2 MG/2 ML SINGLE DOSE VIAL ONE (08:50)
[2024-05-19 09:47] VITALS: BP 124/64; PULSE 74; RESP 18
== END 2024-05-19 10:02 | disposition home or self-care (01) ==
LOC: FASU 07:07
PROVIDERS: ATTEND Ophthalmology
PROC: 08RJ3JZ Replacement of Right Lens with Synthetic Substitute, Percutaneous Approach (ICD-10-PCS; principal; 2024-05-19 08:55)
DX: H26.8 Other specified cataract (principal)
CPT/HCPCS: 66984; V2632

== ENCOUNTER 2024-11-23 16:35 | Emergency (ER) | payer BC, OTHER ==
[2024-11-23 16:51] VITALS: BP 144/66; PULSE 84; RESP 16; TEMP 98.3; BMI 30.6
[2024-11-23] MEDS ORDERED: ONDANSETRON *ODT* 4 MG TABLET ONE (17:22)
[2024-11-23] MEDS: ONDANSETRON *ODT* 4 MG TABLET SL ONE (17:38)
[2024-11-23] MEDS ORDERED: IBUPROFEN 600 MG TABLET (FP) PO ONE (17:47)
== END 2024-11-23 17:56 | disposition home or self-care (01) ==
LOC: JER 16:35
DX: S09.90XA Unspecified injury of head, initial encounter (principal); R11.0 Nausea; W21.06XA Struck by volleyball, initial encounter
CPT/HCPCS: 70450-TC; 99284-25; Q0162